=== PATIENT | male | born 1965 | race African-American/Black ===

== ENCOUNTER 2020-04-17 10:54 | Observation (INO) | payer BC ==
[~2020-04-17] VITALS: Ht 172.7 cm; Wt 65.8 kg
--- NOTE | 2020-04-17 11:08 | PHYS DOC ---
General Adult EDM: Chief Complaint: NEURO SYMPTOMS/DEFICITS HPI: HPI: The history was obtained from the patient and sister. Patient is a 54-year-old male with PMH hypertension, hyperlipidemia, chronic right lower extremity weakness who presents with a chief complaint of slurred speech. Per patient he had acute onset slurred speech and confusion 1 hour prior to arrival. He states that he had difficulty walking due to bilateral lower extremity weakness. Patient denies any falls or head trauma. He states he has never had a stroke before. He states that he does drink alcohol daily. He states he drinks 1 beer, 2 shots in the evenings. States he last drank yesterday evening. Denies any drug abuse outside of marijuana. He denies any chest pain or shortness of breath. Denies any fevers or cough. Denies any syncope. States he has never had symptoms like this in the past. Sister states that patient has chronic right lower extremity weakness and walks with a limp. They think he may have had a stroke years ago but never was evaluated for this. She did state that the patient told her that he did take a Percocet at home for leg pain. She is unsure whether the Percocet is prescrib ed. She denies any concern for excessive alcohol use or drug abuse. No other complaints. Review of Systems: Review of Systems: Constitutional: Denies fever or chills Eyes: Denies change in visual acuity HENT: Denies nasal congestion or sore throat Respiratory: Denies cough or shortness of breath Cardiovascular: Denies chest pain or edema GI: Denies abdominal pain, nausea, vomiting, bloody stools or diarrhea : Denies dysuria Musculoskeletal: Denies back pain or joint pain Integument: Denies rash Neurologic: Positive for slurred speech and generalized weakness Endocrine: Denies polyuria or polydipsia Lymphatic: Denies swollen glands Psychiatric: Denies depression or anxiety Heart Score: Risk Factors: Risk Factors: DM, Current or recent (<one month) smoker, HTN, HLP, family history of CAD, obesity. Risk Scores: Score 0 - 3: 2.5% MACE over next 6 weeks - Discharge Home Score 4 - 6: 20.3% MACE over next 6 weeks - Admit for Clinical Observation Score 7 - 10: 72.7% MACE over next 6 weeks - Early Invasive Strategies Physical Exam: PE: Constitutional: Well developed, well nourished, no acute distress, non-toxic appearance. [] HENT: Normocephalic, atraumatic, bilateral external ears normal, oropharynx moist, no oral exudates, nose normal. [] Eyes: PERRLA, EOMI, conjunctiva normal, no discharge. [] Neck: Normal range of motion, no tenderness, supple, no stridor. [] Cardiovascular:Heart rate regular rhythm, no murmur [] Lungs & Thorax: Bilateral breath sounds clear to auscultation [] Abdomen: Bowel sounds normal, soft, no tenderness, no masses, no pulsatile masses. [] Skin: Warm, dry, no erythema, no rash. [] Back: No tenderness, no CVA tenderness. [] Extremities: No tenderness, no cyanosis, no clubbing, ROM intact, no edema. [] Neurologic: Alert and oriented X 3, normal motor function, normal sensory function, no focal deficits noted. [] Psychologic: Affect normal, judgement normal, mood normal. [] Current Patient Data: Labs: Laboratory Tests Test 04/17/20 10:54 04/17/20 11:21 04/17/20 11:53 Glucose (Fingerstick) 144 mg/dL White Blood Count 7.2 x10^3/uL Red Blood Count 4.06 x10^6/uL Hemoglobin 13.8 g/dL Hematocrit 40.3 % Mean Corpuscular Volume 99 fL Mean Corpuscular Hemoglobin 34 pg Mean Corpuscular Hemoglobin Concent 34 g/dL Red Cell Distribution Width 12.5 % Platelet Count 224 x10^3/uL Neutrophils (%) (Auto) 66 % Lymphocytes (%) (Auto) 23 % Monocytes (%) (Auto) 9 % Eosinophils (%) (Auto) 2 % Basophils (%) (Auto) 0 % Neutrophils # (Auto) 4.7 x10^3uL Lymphocytes # (Auto) 1.7 x10^3/uL Monocytes # (Auto) 0.7 x10^3/uL Eosinophils # (Auto) 0.1 x10^3/uL Basophils # (Auto) 0.0 x10^3/uL Sodium Level 143 mmol/L Potassium Level 3.5 mmol/L Chloride Level 107 mmol/L Carbon Dioxide Level 31 mmol/L Anion Gap 5 Blood Urea Nitrogen 16 mg/dL Creatinine 0.9 mg/dL Estimated GFR (Cockcroft-Gault) 87.6 BUN/Creatinine Ratio 18 Glucose Level 106 mg/dL Calcium Level 8.9 mg/dL Total Bilirubin 0.3 mg/dL Aspartate Amino Transf (AST/SGOT) 11 U/L Alanine Aminotransferase (ALT/SGPT) 22 U/L Alkaline Phosphatase 35 U/L Troponin I Quantitative < 0.017 ng/mL Total Protein 6.7 g/dL Albumin 3.5 g/dL Albumin/Globulin Ratio 1.1 Ethyl Alcohol Level < 10 mg/dL Urine Collection Type Unknown Urine Color Yellow Urine Clarity Clear Urine pH 5.5 Urine Specific [place] 1.020 Urine Protein Neg Urine Glucose (UA) Neg mg/dL Urine Ketones (Stick) Neg mg/dL Urine Blood Small Urine Nitrite Neg Urine Bilirubin Neg Urine Urobilinogen Dipstick 0.2 mg/dL Urine Leukocyte Esterase Neg Urine RBC 3-5 /HPF Urine WBC Occ /HPF Urine Squamous Epithelial Cells Occ /LPF Urine Bacteria 0 /HPF Urine Mucus Slight /LPF Urine Opiates Screen Neg Urine Methadone Screen Neg Urine Barbiturates Neg Urine Phencyclidine Screen Neg Urine Amphetamine/Methamphetamine Neg Urine Benzodiazepines Screen Neg Urine Cocaine Screen Neg Urine Cannabinoids Screen Neg Urine Ethyl Alcohol Neg Current Medications Medications (Trade) Dose Ordered Sig/Oli Route PRN Reason Start Time Stop Time Status Last Admin Dose Admin Iohexol (Omnipaque 350 Mg/ml) 100 ml 1X ONCE IV 04/17/20 13:15 04/17/20 13:16 DC 04/17/20 13:34 Info (Do NOT chart on this entry -- for MONITORING) 1 each PRN DAILY PRN MC SEE COMMENTS 04/17/20 13:15 04/19/20 13:14 Nicotine (Nicoderm Cq 21mg Patch) 1 patch 1X ONCE TD 04/17/20 13:15 04/17/20 13:16 DC 04/17/20 13:34 Haloperidol Lactate (Haldol) 5 mg STK-MED ONCE .ROUTE 04/17/20 13:29 04/17/20 13:30 DC Vital Signs: Vital Signs Date Time Temp Pulse Resp B/P (MAP) Pulse Ox O2 Delivery O2 Flow Rate FiO2 04/17/20 10:57 97.8 70 16 155/88 (110) 99 Room Air EKG: EKG: EKG consistent with normal sinus rhythm. Ventricular to 68 bpm. Left axis n oted. Flipped T waves noted in the inferior leads. No acute ST segment elevation appreciated. [] Radiology/Procedures: Radiology/Procedures: [address] [address] IMAGING REPORT Signed PATIENT: BUD MCCORD ACCOUNT: [id number] : 1965 LOCATION: ER AGE: 54 SEX: M EXAM STATUS: REG ER ORD. PHYSICIAN: RIVERA KEITA DO REASON: ataxia PROCEDURE: CT ANGIOGRAPHY HEAD AND NECK EXAM: CT Angiogram of the Head and Neck INDICATION: Reason: ataxia / Spl. Instructions: / History: TECHNIQUE: CT images were obtained through the head per standard CTA protocol. Multiplanar and 3D reformatted images were generated from the CT dataset on an independent workstation. All CT scans performed at this facility utilize dose optimization techniques as appropriate to the exam, including the following: Automated exposure control and adjustment of the mA and/or KV according to patient size (this includes techniques or standardized protocols for targeted exams where dose is indication/reason for exam). IV CONTRAST: Administered COMPARISON: Same day noncontrast head CT FINDINGS: CTA HEAD: No high-grade large vessel stenosis, proximal or branch vessel occlusion, aneurysm, or vascular malformation. ANTERIOR CIRCULATION: Anterior and middle cerebral arteries are widely patent. ANTERIOR COMMUNICATING ARTERY: Diminutive but likely present.. POSTERIOR COMMUNICATING ARTERIES: Present bilaterally and patent. POSTERIOR CIRCULATION: Vertebral and basilar arteries are widely patent. Bilateral posterior inferior cerebellar arteries (PICAs), anterior inferior cerebellar arteries (AICAs), and superior cerebellar arteries (SCAs) are visualized and patent. OTHER: No abnormal brain parenchymal enhancement. The paranasal sinuses, mastoid air cells, and tympanic cavities are clear. NECK CTA: AORTA: 3 vessel configuration of arch. No dissection or acute aortic injury. No hemodynamically significant great vessel origin stenosis. RIGHT CAROTID: Common and internal carotid arteries are widely patent, without evidence of flow limiting stenosis or dissection. LEFT CAROTID: Common and internal carotid arteries are widely patent, without evidence of flow limiting stenosis or dissection. VERTEBRAL ARTERIES: Codominant. No evidence of dissection or flow limiting stenosis. SUBCLAVIAN ARTERIES:Subclavian arteries are patent without stenosis. SOFT TISSUES: Soft tissues show minimal prominence of the upper cervical lymph nodes, no bulky adenopathy. Lung apices are clear. Incidental ACDF surgical changes in the mid cervical spine spanning C3-C5 with interbody grafts at C3-C4 and C4-C5. Where applicable, evaluation of ICA stenosis was performed using NASCET criteria, where the site of greatest stenosis is compared to the diameter of the ICA distal to the carotid bulb. IMPRESSION: Normal CTA of the head and neck. FOR INTERNAL CODING PURPOSES Critical result: Findings discussed with RIVERA KEITA at 04/17/2020 2:13 PM. RESULT CODE: (C) Electronically signed by: Kristen Ragsdale MD (04/17/2020 2:14 PM) [id number] DICTATED AND SIGNED BY: KRISTEN RAGSDALE MD DATE: 04/17/20 1414 CC: PCP,NO; RIVERA KEITA DO ~ [address] [address] IMAGING REPORT Signed PATIENT: BUD MCCORD ACCOUNT: [id number] : 1965 LOCATION: ER AGE: 54 SEX: M EXAM STATUS: PRE ER ORD. PHYSICIAN: RIVERA KEITA DO REASON: dysarthria and aphasia PROCEDURE: CT CODE STROKE HEAD WO STUDY: CT head without contrast INDICATION: Dysarthria and aphasia. COMPARISON: None. TECHNIQUE: Axial CT imaging through the head without the use of intravenous contrast. Sagittal and coronal reformats were obtained. One or more of the following individualized dose reduction techniques were utilized for this examination: 1. Automated exposure control 2. Adjustment of the mA and/or kV according to patient size 3. Use of iterative reconstruction technique. FINDINGS: Hernandez-white matter differentiation is maintained. No acute intracranial hemorrhage. No mass effect, midline shift or hydrocephalus. Unremarkable scalp and partially imaged orbits. Intact calvarium. Normally aerated mastoid air cells, middle ears and sphenoid sinus frontal sinus. Mild scattered ethmoidal air cell mucosal thickening. Bilateral external auditory canals cerumen. IMPRESSION: No CT evidence for an acute cortical infarction. No acute intracranial hemorrhage. Electronically signed by: MONA AGUDELO MD (04/17/2020 11:34 AM) [id number] DICTATED AND SIGNED BY: MONA AGUDELO MD DATE: 04/17/20 1134 CC: BRIAN KEITAORY Meme DO ~ [] Course & Med Decision Making: Course & Med Decision Making Pertinent Labs and Imaging studies reviewed. (See chart for details) [] Patient is a 54-year-old male who presents with dysarthria, generalized weakness, confusion. Patient works across the street and was found to have the symptoms just prior to arrival. Patient tells me however that the symptoms may have began almost 4 hours prior to arrival. Initial NIH score of 1, for dysarthria. Stroke protocol was initiated. Indgf-ch-ksuc glucose normal. Head CT noncontrast study negative. EKG unremarkable. Basic labs were obtained and were grossly unremarkable. Alcohol level negative. UDS negative. Sister did arrive at bedside shortly after CT imaging. She states that his speech is baseline for him. She states that he typically does ambulate with slight bal ance issues due to right lower extremity weakness secondary to back pain. However she states that his balance seems to be slightly worse than normal. Given my concern for some posterior involvement CTA head and neck was obtained that was unremarkable. Based on the unclear last known well and unclear acute versus chronic neurologic symptoms I do not feel he is a TPA candidate. I did discuss case with neurologist Dr. Churchill who felt the patient was appropriate for hospitalization at our facility and further evaluation. Patient was given full dose aspirin. Prior to hospitalization patient did become somewhat agitated and verbally combative. I do have concerns for his capacity at this time given he has displayed intermittent confusion and is not oriented to time. He was given 5 mg of Haldol IV to facilitate anxiolysis. He is appropriate for hospitalization at this time. Dragon Disclaimer: Dragon Disclaimer: This electronic medical record was generated, in whole or in part, using a voice recognition dictation system. Departure Departure: Impression: Primary Impression: Confused Additional Impressions: Dysarthria Ataxia Disposition: ADMITTED INPATIENT Condition: STABLE Scripts Aspirin (ASPIRIN) 81 Mg Tab.chew 81 MG PO DAILY for cad for 30 Days, #30 TAB Prov: MARLENE STEIN MD 04/18/20 Amlodipine Besylate (AMLODIPINE BESYLATE) 10 Mg Tablet 1 TAB PO DAILY for htn for 30 Days, #30 TAB 5 Refills Prov: MARLENE STEIN MD 04/18/20 Justification of Admission: Justification of Admission: Justification of Admission Dx: Yes Comments: confusion, dysarthria, ataxia NIHSS - ED NIH Stroke Scale: NIH Stroke Scale Response (Comments) Value Level of Consciousness: 0 Alert/Responsive 0 LOC Questions: 0 Answers both correctly 0 LOC Commands: 0 Performs both tasks 0 Best Gaze: 0 Normal 0 Visual: 0 No visual loss 0 Facial Palsy: 0 Normal, symmetrical 0 Motor - Left Arm 0 No drift 0 Motor - Right Arm 0 No drift 0 Motor - Left Leg 0 No drift 0 Motor: Right Leg 0 No drift 0 Limb Ataxia: 0 Absent 0 Sensory: 0 No loss 0 Best Language: 0 Normal 0 Dysathria: 1 Mild to moderate 1 Extinction and Inattention: 0 Normal 0 Total 1 RIVERA KEITA DO Apr 17, 2020 11:08
--- NOTE | 2020-04-17 11:33 | EKG ---
[address] [address] Test Date: 2020-04-17 Test Time: 11:11:11 Pat Name: BUD WALLACE Department: Room: Gender: M [employer]: : 1965 Requested By: RIVERA KEITA Order Number: [id number] Reading MD: Measurements Intervals [place] Rate: 68 P: 31 DE: 148 QRS: -6 QRSD: 96 T: -49 QT: 396 QTc: 426 Interpretive Statements SINUS RHYTHM LEFTWARD AXIS AMPLITUDE CRITERIA FOR LVH ST & T ABNORMALITY, CONSIDER INFERIOR ISCHEMIA OR LEFT VENTRICULAR STRAIN ABNORMAL ECG RI6.02 No previous ECG available for comparison
--- NOTE | 2020-04-17 11:36 | RAD ---
AP chest. HISTORY: Confusion AP view was taken of the chest. Patient's taken a poor inspiration. There are no acute infiltrates. There is no pleural effusion. Heart is normal in size. IMPRESSION: 1. No acute chest disease. Electronically signed by: Mitesh Villalobos MD (04/17/2020 11:33 AM) [id number]
--- NOTE | 2020-04-17 11:37 | RAD ---
STUDY: CT head without contrast INDICATION: Dysarthria and aphasia. COMPARISON: None. TECHNIQUE: Axial CT imaging through the head without the use of intravenous contrast. Sagittal and coronal reformats were obtained. One or more of the following individualized dose reduction techniques were utilized for this examination: 1. Automated exposure control 2. Adjustment of the mA and/or kV according to patient size 3. Use of iterative reconstruction technique. FINDINGS: Hernandez-white matter differentiation is maintained. No acute intracranial hemorrhage. No mass effect, midline shift or hydrocephalus. Unremarkable scalp and partially imaged orbits. Intact calvarium. Normally aerated mastoid air cells, middle ears and sphenoid sinus frontal sinus. Mild scattered ethmoidal air cell mucosal thickening. Bilateral external auditory canals cerumen. IMPRESSION: No CT evidence for an acute cortical infarction. No acute intracranial hemorrhage. Electronically signed by: MONA AGUDELO MD (04/17/2020 11:34 AM) [id number]
[2020-04-17 11:38] LABS: BASO % 0 % (0-3); EOS # 0.1 x10^3/uL (0.0-0.7); EOS % 2 % (0-3); HEMATOCRIT 40.3 % (39.0-53.0); HEMOGLOBIN 13.8 g/dL (13.0-17.5); LYMPH # 1.7 x10^3/uL (1.0-4.8); LYMPH % 23 % (24-48); MEAN CORPUSCULAR HEMOGLOBIN 34 pg (25-35); MEAN CORPUSCULAR HGB CONC 34 g/dL (31-37); MEAN CORPUSCULAR VOLUME 99 fL (79-100); MONO # 0.7 x10^3/uL (0.0-1.1); MONO % 9 % (0-9); NEUT # 4.7 x10^3uL (1.8-7.7); NEUT % 66 % (31-73); PLATELET COUNT 224 x10^3/uL (140-400); RED BLOOD COUNT 4.06 x10^6/uL (4.30-5.70); RED CELL DISTRIBUTION WIDTH 12.5 % (11.5-14.5); WHITE BLOOD COUNT 7.2 x10^3/uL (4.0-11.0)
[2020-04-17 11:45] LABS: CALCIUM 8.9 mg/dL (8.5-10.1); CREATININE 0.9 mg/dL (0.7-1.3); GFR 87.6; POTASSIUM 3.5 mmol/L (3.5-5.1)
[2020-04-17 11:51] LABS: ALBUMIN 3.5 g/dL (3.4-5.0); ALBUMIN/GLOBULIN RATIO 1.1 (1.0-1.7); TOTAL BILIRUBIN 0.3 mg/dL (0.2-1.0); TOTAL PROTEIN 6.7 g/dL (6.4-8.2)
[2020-04-17 12:18] LABS: BARBITURATES NEG (NEG); BENZODIAZEPINES NEG (NEG); CANNABINOIDS NEG (NEG); COCAINE NEG (NEG); METHADONE NEG (NEG); OPIATES NEG (NEG); PHENCYCLIDINE NEG (NEG)
[2020-04-17 12:19] LABS: AMPHETAMINE/METHAMPHETAMINE NEG (NEG)
[2020-04-17 13:02] LABS: BACTERIA,URINE 0 /HPF (0-FEW); BILIRUBIN,URINE NEG (NEG); CLARITY,URINE CLEAR; COLOR,URINE YELLOW; GLUCOSE,URINE NEG (NEG); NITRITE,URINE NEG (NEG); SQUAMOUS EPITHELIAL CELL,UR OCC /LPF; UROBILINOGEN,URINE 0.2 mg/dL (0.2 mg/dL); WBC,URINE OCC /HPF (0-4)
[2020-04-17] MEDS ORDERED: CONTRAST GIVEN. MC PRN (13:15)
[2020-04-17] MEDS ORDERED: IOHEXOL 350 MG/ML 100 ML VIAL. IV ONE (13:15)
[2020-04-17] MEDS ORDERED: NICOTINE 21MG PATCH. TD ONE (13:15)
[2020-04-17] MEDS ORDERED: HALOPERIDOL LACT 5 MG/ML VIAL. ONE (13:29)
[2020-04-17] MEDS ORDERED: HALOPERIDOL LACT 5 MG/ML VIAL. IVP ONE (13:45)
--- NOTE | 2020-04-17 14:17 | RAD ---
EXAM: CT Angiogram of the Head and Neck INDICATION: Reason: ataxia / Spl. Instructions: / History: TECHNIQUE: CT images were obtained through the head per standard CTA protocol. Multiplanar and 3D reformatted images were generated from the CT dataset on an independent workstation. All CT scans performed at this facility utilize dose optimization techniques as appropriate to the exam, including the following: Automated exposure control and adjustment of the mA and/or KV according to patient size (this includes techniques or standardized protocols for targeted exams where dose is indication/reason for exam). IV CONTRAST: Administered COMPARISON: Same day noncontrast head CT FINDINGS: CTA HEAD: No high-grade large vessel stenosis, proximal or branch vessel occlusion, aneurysm, or vascular malformation. ANTERIOR CIRCULATION: Anterior and middle cerebral arteries are widely patent. ANTERIOR COMMUNICATING ARTERY: Diminutive but likely present.. POSTERIOR COMMUNICATING ARTERIES: Present bilaterally and patent. POSTERIOR CIRCULATION: Vertebral and basilar arteries are widely patent. Bilateral posterior inferior cerebellar arteries (PICAs), anterior inferior cerebellar arteries (AICAs), and superior cerebellar arteries (SCAs) are visualized and patent. OTHER: No abnormal brain parenchymal enhancement. The paranasal sinuses, mastoid air cells, and tympanic cavities are clear. NECK CTA: AORTA: 3 vessel configuration of arch. No dissection or acute aortic injury. No hemodynamically significant great vessel origin stenosis. RIGHT CAROTID: Common and internal carotid arteries are widely patent, without evidence of flow limiting stenosis or dissection. LEFT CAROTID: Common and internal carotid arteries are widely patent, without evidence of flow limiting stenosis or dissection. VERTEBRAL ARTERIES: Codominant. No evidence of dissection or flow limiting stenosis. SUBCLAVIAN ARTERIES:Subclavian arteries are patent without stenosis. SOFT TISSUES: Soft tissues show minimal prominence of the upper cervical lymph nodes, no bulky adenopathy. Lung apices are clear. Incidental ACDF surgical changes in the mid cervical spine spanning C3-C5 with interbody grafts at C3-C4 and C4-C5. Where applicable, evaluation of ICA stenosis was performed using NASCET criteria, where the site of greatest stenosis is compared to the diameter of the ICA distal to the carotid bulb. IMPRESSION: Normal CTA of the head and neck. FOR INTERNAL CODING PURPOSES Critical result: Findings discussed with RIVERA KEITA at 04/17/2020 2:13 PM. RESULT CODE: (C) Electronically signed by: Ethan Ragsdale MD (04/17/2020 2:14 PM) [id number]
[2020-04-17] MEDS ORDERED: ASPIRIN 325 MG TABLET PO ONE (14:45)
[2020-04-17 15:50] VITALS: BP 189/94
[2020-04-17] MEDS ORDERED: amLODIPine BESYLATE 5 MG TABLET PO ONE (16:45)
[2020-04-17] MEDS: POTASSIUM CL 40MEQ D5-0.45NACL 1,000 ML IV SCH (17:31)
--- NOTE | 2020-04-17 17:43 | HP ---
ADMIT DATE: 04/17/2020 HISTORY OF PRESENT ILLNESS: The patient is a 54-year-old -[place] male patient who was brought to the Emergency Room with chief complaint of slurred speech. Per patient he had acute onset of slurred speech and confusion 1 hour prior to arrival. He stated he had had difficulty walking due to bilateral lower extremity weakness. He denied any fall or head trauma. He stated he has never had any strokes before. He stated that he does drink alcohol daily. He states he drank 1 beer and 2 shots in the evening. He last drank yesterday evening. Denied any drug abuse outside of marijuana. He denied any chest pain or shortness of breath. Denied any fever or cough. Denied any syncope. He has never had symptoms like this before. His sister stated that the patient has chronic right lower extremity weakness and walks with a limp. They think he may have had a stroke years ago, but never was evaluated for this. She did state that the patient told her that he did take a Percocet at home for leg pain. She is unsure whether that Percocet is prescribed. She denies any concern for excessive alcohol or drug abuse. He apparently works at the [employer] in the [employer] department and to me he denied taking any medication today, although admits that he drinks alcohol. PAST MEDICAL HISTORY: Significant for hypertension, hyperlipidemia, chronic right lower extremity weakness. PAST SURGICAL HISTORY: Significant for cervical spine fusion. ALLERGIES: He denies any drug allergies. It transpired that he is not on any medication now. He said he used to be on antihypertensive medication long time ago. FAMILY HISTORY: Apparently unremarkable. SOCIAL HISTORY: He lives alone. He does smoke and drink alcohol and uses marijuana. REVIEW OF SYSTEMS: As per history of present illness. PHYSICAL EXAMINATION: GENERAL: When I examined him, he apparently was well-developed, well-nourished, in no acute distress. VITAL SIGNS: His heart rate was 65, blood pressure was 162/91, his temperature was 97.8, respiratory rate was 16, and oxygen saturation was 99%. HEAD, EYES, EARS, NOSE AND THROAT: Showed normocephalic, atraumatic. NECK: Supple. There is definitely no neck rigidity and Kernig's sign was negative. HEART: Showed normal first and second heart sounds. No gallop, rub or murmur. CHEST: Clear to auscultation. No crepitation or rhonchi. ABDOMEN: Distended, soft, nontender. No guarding or rigidity. No organomegaly. All hernial orifice intact. Bowel sounds normal. NEUROLOGIC: He was very sleepy, but arousable. He opens eyes and drifts back to sleep. All his cranial nerves are intact. EXTREMITIES: He moves all extremities without difficulty. LABORATORY DATA: His lab work on arrival showed a white cell count 7200, hemoglobin 14, hematocrit 40, MCV 99 and platelet count 224,000 with normal manual differential. His serum sodium was 143, potassium 3.5, chloride 107, bicarbonate 31, anion gap of 5, BUN 16, creatinine 0.9, estimated GFR was 88 mL per minute, his glucose was 106, calcium was 8.9. His total bilirubin 0.3. AST, ALT, alkaline phosphatase were normal. His total protein was 6.7, albumin was 3.5. His urinalysis was essentially unremarkable and his toxic screen was negative for opiates, methadone, barbiturates, phencyclidine, amphetamine, methamphetamine, cocaine, cannabinoids, and ethyl alcohol. The CT scan of the head showed the alvares-white matter differentiation is maintained, no acute intracranial hemorrhage, no mass effect or midline shift or hydrocephalus, unremarkable. Scalp and partially imaged orbits, intact calvarium, normally aerated mastoid air cells, middle ears and sphenoid sinus and frontal sinuses. Mild scattered ethmoid air cell mucosal thickening, bilateral external auditory canal cerumen and the impression is that the patient has no evidence of an acute cortical infarction, no acute intracranial hemorrhage. His chest x-ray was unremarkable and he had had a CT angio of the head and neck, which showed basically no high-grade large vessel stenosis, proximal or branch vessel occlusion, aneurysm or vascular malformation. The anterior circulation, the anterior and middle cerebral arteries are widely patent, anterior communicating artery diminutive, but likely present. Posterior communicating artery is present bilaterally and patent Posterior circulation showed vertebral and basilar arteries are widely patent, has bilateral posterior inferior cerebellar arteries, anterior inferior cerebellar arteries and superior cerebellar arteries visualized and patent. No abnormal brain parenchymal enhancement. The paranasal sinuses, mastoid air cells and tympanic cavities are clear. The neck CTA showed the aorta has 3-vessel configuration of arch. No dissection or acute aortic injury, no hemodynamically significant great vessel origin stenosis. Right carotid, common and internal carotid arteries are widely patent without evidence of flow limiting stenosis or dissection. The left carotid, common and internal carotid arteries are widely patent without evidence of flow limiting stenosis or dissection. Vertebral arteries codominant, no evidence of dissection or flow-limiting stenosis. Subclavian arteries are patent without stenosis. Soft tissue show minimal prominence of the upper cervical lymph nodes. No bulky adenopathy. Lung apices are clear. Incidental ACDF surgical changes in the mid cervical spine spanning C3-C5 with interbody graft at C3-C4 and C4-C5 where applicable evaluation of internal carotid artery stenosis is performed using NASCET criteria with the site of greater stenosis compared to the ____ diameter of the carotid bulb and the impression, the patient has normal CT angio of the head and neck. In summary, this is a 54-year-old -[place] male patient who was admitted with what seemed to be slurring of speech. However, the patient seems to be very lethargic. His sister said he might have taken Percocet. Unfortunately, he was given Haldol at the Emergency Room and patient is extremely lethargic, but without any obvious lateralizing sign. His neck was supple and definitely has no neck rigidity and Kernig's sign was negative His pupils are small and reactive. My plan is to start him on IV fluid and also antihypertensive medication, perhaps amlodipine 5 mg once and repeat all his labs tomorrow. I have consulted the neurologist to assist with his management and obviously observe him overnight. MARLENE STEIN MD DR: JANIS/gary JOB#: [id number] / [id number]
--- NOTE | 2020-04-17 18:32 | NUR ---
PATIENT IS A 54 Y O MALE ADMITTED TO ROOM 113 FROM ED WITH BILATERAL LOWER LEG WEAKNESS AND CONFUSION. PATIENT TRANSFERRED WITH ASSIST X2. A/O X4, PATIENT WAS SEDATED AT ED, ED STAFF REPORTED PATIENT BECAME COMBATIVE AT ED. PATIENT WAS ORIENTED TO THE ROOM, HOSPITAL POLICIES, BELONGINGS OBTAINED. PATIENT IS CALM AND COOPERATIVE, LETHARGIC AND KEEP FALLING ASLEEP DURING ASSESSMENT. ORDERS FROM DR. STEIN OBTAINED CONSULT FOR DR. MONIQUE CORRIGAN. PATIENT IS RESTING COMFORTABLY AT THIS MOMENT, WILL CTM.
[2020-04-17 19:30] VITALS: BP 150/98
--- NOTE | 2020-04-17 20:06 | RAD ---
Exam: CT lumbar spine without contrast INDICATION: Bilateral lower extremity weakness TECHNIQUE: Sequential axial images through the lumbar spine obtained without IV contrast. Sagittal and coronal reformatted images were reconstructed from the axial data and reviewed. Comparisons: None FINDINGS: Vertebral body heights and alignment are well-maintained. Fracture through the lumbar spine is not identified. No significant spondylotic change in the lumbar spine. Visualized soft tissues are unremarkable. IMPRESSION: Unremarkable CT lumbar spine. Exposure: One or more of the following in the visualized dose reduction techniques were utilized for this examination: 1. Automated exposure control 2. Adjustment of the MA and/or KV according to patient size 3. Use of iterative of reconstructive technique Electronically signed by: Tressa Rausch MD (04/17/2020 8:04 PM) [id number]
[2020-04-17 23:10] VITALS: BP 152/84
--- NOTE | 2020-04-18 01:06 | CONS ---
DATE OF CONSULTATION: 04/17/2020 REFERRING PHYSICIAN: Dr. Mao. REASON FOR CONSULTATION: Weakness of the lower extremity and slurred speech, rule out stroke versus TIA. HISTORY OF PRESENT ILLNESS: This is a 54-year-old right-handed male who was admitted to Emergency Room after he complained of sudden onset of slurred speech and intermittent confusion with marked weakness of the lower extremities and tendency to fall. These symptoms began approximately 3-4 hours prior to this admission. He denies any recent head injuries or fall. He denies chest pain, shortness of breath, palpitation, dysphagia or vertigo. He denies any recent head injuries or fall. The patient complains of chronic lower back pain and he related that to degenerative disk disease of the lumbar spine for which he takes Percocet, which is not prescribed by the physician. He denies bowel or bladder dysfunction. Initial nonenhanced head CT scan revealed no acute intracranial process. CT angio of the head and neck revealed no acute abnormalities except for surgical changes in between C3-C5 due to fusion. PAST MEDICAL HISTORY: Significant for hypertension, hyperlipidemia and slowly progressive weakness of the lower extremities. PAST SURGICAL HISTORY: Positive for cervical spine fusion between C3-C5. ALLERGIES: No known drug allergies. FAMILY HISTORY: Noncontributory. SOCIAL HISTORY: The patient is single. 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 He drinks alcohol and smokes marijuana. REVIEW OF SYSTEMS: A 10-point review of system was performed as mentioned above in the history of present illness. His main complaint is including low back pain and weakness of the lower extremities. CURRENT HOME MEDICATIONS: None, however, the patient in the Emergency Room was given Haldol IV. PHYSICAL EXAMINATION: GENERAL: Well-developed, well-nourished male, not in acute distress. He weighs 67 kilos. VITAL SIGNS: Blood pressure 150/98, respiratory rate 20, pulse is 73 and regular, temperature 97.7, oxygen saturation is 95% on room air. HEENT: Normocephalic, atraumatic, otherwise unremarkable. NECK: Supple. Negative for carotid bruit, lymphadenopathy or thyromegaly. LUNGS: Clear to A and P. CARDIOVASCULAR: Regular rate and rhythm, normal S1, S2. There is no S3, S4 or murmur. ABDOMEN: Soft. Bowel sounds positive. EXTREMITIES: Negative for cyanosis, clubbing or edema. NEUROLOGICAL: MENTAL STATUS: The patient is alert and oriented x 3. Speech is fluent. There is no language dysfunction. Memory, judgment, and abstract thinking are fair. The patient denies hallucination or delusion. CRANIAL NERVES: Visual vanegas are full. The pupils are reactive to light and accommodation. The extraocular movements are intact. There is no nystagmus. There is no facial motor or sensory deficit. Hearing is intact bilaterally. The palate is elevated symmetrically. Sternocleidomastoid muscles are powerful bilaterally. The patient shrugs his shoulders symmetrically, protrudes his tongue in the midline without fasciculation or atrophy. MOTOR EXAMINATION: No focal muscle bulk was seen. The tone is normal. The strength is 4/5 in the proximal lower extremities. SENSORY EXAMINATION: Revealed normal pinprick, light touch, vibratory and position senses. Deep tendon reflexes were symmetric and active without pathology responses. Gait: The patient has abnormal tandem gait and he has tendency to fall when he turns. LABORATORY DATA: CBC revealed white cells of 7.2 thousand, hemoglobin 13.8, hematocrit 40.3 and platelet count 224,000. Chemistry revealed sodium of 143, potassium 3.5, chloride 107, CO2 of 31, BUN 16, creatinine 0.9, glucose 106, calcium 8.9. Troponin is normal. Urinalysis negative for urinary tract infection. Urine drug screen was negative. IMPRESSION: 1. Acute onset of slurred speech, confusion and weakness of the lower extremities, etiology uncertain as the patient has had weakness of the lower extremity and limping on the right side, probably due to previous cervical fusion between C3-C5. 2. Multiple medical problems include hypertension, hyperlipidemia and chronic low back pain. RECOMMENDATIONS: 1. We will obtain a lumbar spine CT scan as the patient stated he has had history of bulging disk of the lumbar spine. 2. Continue with current management initiated by Dr. Mao. 3. Physical therapy evaluation. M Aman AMAYA MD DR: KONRAD/gary JOB#: [id number] / [id number]
[2020-04-18] MEDS: POTASSIUM CL 40MEQ D5-0.45NACL 1,000 ML IV SCH (01:39)
[2020-04-18 05:53] VITALS: BP 146/96
[2020-04-18] MEDS ORDERED: amLODIPine BESYLATE 5 MG TABLET PO SCH (09:00)
[2020-04-18 09:06] LABS: CALCIUM 9.1 mg/dL (8.5-10.1); CREATININE 0.8 mg/dL (0.7-1.3); GFR 121.4
[2020-04-18 09:18] LABS: POTASSIUM 4.1 mmol/L (3.5-5.1)
[2020-04-18 10:16] LABS: BASO % 0 % (0-3); EOS # 0.2 x10^3/uL (0.0-0.7); EOS % 2 % (0-3); HEMATOCRIT 42.3 % (39.0-53.0); HEMOGLOBIN 14.6 g/dL (13.0-17.5); LYMPH # 1.6 x10^3/uL (1.0-4.8); LYMPH % 21 % (24-48); MEAN CORPUSCULAR HEMOGLOBIN 34 pg (25-35); MEAN CORPUSCULAR HGB CONC 35 g/dL (31-37); MEAN CORPUSCULAR VOLUME 100 fL (79-100); MONO # 0.6 x10^3/uL (0.0-1.1); MONO % 8 % (0-9); NEUT # 5.1 x10^3uL (1.8-7.7); NEUT % 68 % (31-73); PLATELET COUNT 207 x10^3/uL (140-400); RED BLOOD COUNT 4.25 x10^6/uL (4.30-5.70); RED CELL DISTRIBUTION WIDTH 12.6 % (11.5-14.5); WHITE BLOOD COUNT 7.5 x10^3/uL (4.0-11.0)
[2020-04-18 11:26] VITALS: BP 156/92
--- NOTE | 2020-04-18 11:51 | NUR ---
NSG NOTE; STATUS WNL PT HAD BEDSIDE SCREEN THIS AM WHICH WAS NEGATIVE FOR SWALLOWING PROBLEMS. HE ATE A LATE BREAKFAST WITH NO ISSUES. A&O X4. THINKING AND SPEAKING CLEARLY PT AMB TO BR WITH STANDBY WITHOUT DIZZINESS OR UNSTEADINESS. DR AMAYA CLEARED PT FOR DISCHARGE TODAY AND TO FOLLOW UP IN OFFICE IN TWO WEEKS
[2020-04-18 12:00] VITALS: BP 156/92
--- NOTE | 2020-04-18 12:12 | PN ---
DATE: SUBJECTIVE: The patient denies any new medical or neurological complaints. He stated he was not doing well at the day of admission because of severe low back pain radiating into the right lower extremity; however, he stated his pain mainly now in the right hip and the knees. Therefore, he took oxycodone and a friend gave him two pills, he thought it was like Adderall because he wants to do 2 jobs a day. The patient knows he was somewhat agitated on the day of admission and he was given Haldol in the Emergency Room. The patient told me yesterday he had severe radicular lower back pain and he related that to two bulging disks of the lumbar spine. Therefore, CT scan of the lumbar spine was performed, which revealed no abnormalities. It is very important to mention that the patient has had this weakness of the right lower extremity prior and after cervical spine fusion between C3 and C5. He was told by his neurosurgeon, Dr. Shay that weakness will improve over time. The patient stated he has had some improvement, but he continues to have some weakness of the right lower extremity. OBJECTIVE: GENERAL: Well-developed, well-nourished male in no acute distress. VITAL SIGNS: Blood pressure 146/96, respiratory rate 20, pulse 66, temperature 98.1, oxygen saturation 98% on room air. HEENT: Normocephalic, atraumatic, otherwise unremarkable. NECK: Supple. Negative for carotid bruit, lymphadenopathy or thyromegaly. LUNGS: Clear to A and P. CARDIOVASCULAR: Regular rate and rhythm, normal S1, S2. There is no S3, S4, or murmur. ABDOMEN: Soft. Bowel sounds positive. EXTREMITIES: Negative for cyanosis, clubbing or edema. NEUROLOGICAL EXAM: Mental Status: The patient is alert and oriented x 3. The speech is fluent. There is no language dysfunction, otherwise unremarkable. Cranial nerves are intact. No focal motor or sensory deficit. Deep tendon reflexes were symmetric and active without pathology responses. Gait: The stance is more steady. IMPRESSION: 1. Acute onset of slurred speech, confusion and weakness of the lower extremities, etiology uncertain, however, side effects of pills or narcotics may have contributed to the current symptoms. 2. History of lower back pain with normal lumbosacral spine CT scan. RECOMMENDATIONS: 1. Avoid excessive use of narcotics. 2. Follow up with Dr. Amaya after 2 weeks of discharge for further evaluation for his lower back pain on an outpatient basis. M Aman AMAYA MD DR: KONRAD/gary JOB#: [id number] / [id number]
[2020-04-18] MEDS ORDERED: AMLO10TA8 PO (13:54)
[2020-04-18] MEDS ORDERED: ASPI-630 PO (13:54)
--- NOTE | 2020-04-18 14:25 | NUR ---
NSG NOTE; DISCHARGE VERBAL AND WRITTEN DISCHARGE INSTRUCTIONS GIVEN TO PT WITH VERBAL UNDERSTANDING WRITTEN RX GIVEN TO PT DISCHARGED TO HOME AT 1422 VIA AMB ACCOMP BY SON WHO PICKED HIM UP
--- NOTE | 2020-04-18 15:07 | DS ---
DATE OF DISCHARGE: HOSPITAL COURSE: The patient is a 54-year-old -[place] male patient who was admitted yesterday with altered mental status, slurring of speech, confusion, weakness in his lower extremity. He was extremely lethargic yesterday and it was very difficult to get information from him. His sister said he might have taken Percocet and was given also Haldol in the Emergency Room as apparently was combative there. He was extensively investigated and all his lab work and the imaging studies showed no evidence of any high-grade large vessel stenosis, any proximal branch vessel occlusion, aneurysm or vascular malformation. When I saw him this morning, he was definitely more awake, alert, sitting in the chair. PHYSICAL EXAMINATION: GENERAL: When I examined him, he looked well and was clearly in no apparent respiratory distress. No pallor, jaundice, cyanosis or thyromegaly. No jugular venous distention. No lower limb edema. VITAL SIGNS: His heart rate was 73, blood pressure 156/92, temperature was 99.2, respiratory rate 20 and oxygen saturation was 98% on room air. HEAD, EYES, EARS, NOSE AND THROAT: Normocephalic, atraumatic. NECK: Supple. HEART: Showed normal first and second heart sounds. No gallop, rub or murmur. CHEST: Clear to auscultation. No crepitation or rhonchi. ABDOMEN: Distended, soft, nontender. No guarding or rigidity. No organomegaly. All hernial orifices intact. Bowel sounds normal. NEUROLOGIC: He is definitely awake, alert, responding appropriately. All his cranial nerves are intact. EXTREMITIES: He moves extremities without difficulty, ambulates without assistance or assistive devices. LABORATORY DATA: His lab work showed serum sodium 141, potassium 4.1, chloride 106, bicarbonate 27, anion gap of 8, BUN 8, creatinine 0.8, estimated GFR was 121 mL per minute. His glucose 132, calcium was 9.1. His white cell count was 7500, hemoglobin 14.6, hematocrit 42, MCV 100, and platelet count 207,000. His toxic screen was negative. Urinalysis was essentially unremarkable. His CT scan of the lumbar spine was unremarkable and showed vertebral body heights and alignment are all maintained. Fracture through the lumbar spine is not identified. No significant spondylitic changes in the lumbar spine. Visualized soft tissues are unremarkable. DISCHARGE MEDICATIONS: He was discharged home on amlodipine 10 mg once a day and a baby aspirin. DISCHARGE INSTRUCTIONS: He was advised to follow with ____ and was to follow with Dr. Scherer. He was advised to quit smoking and drinking alcohol. FINAL DISCHARGE DIAGNOSES: Altered mental status with confusion, slurred speech and weakness of the right lower extremity that has resolved, hypertension, alcoholism and nicotine dependence and marijuana use disorder. MARLENE STEIN MD DR: JANIS/gary JOB#: [id number] / [id number]
== END 2020-04-18 14:25 | disposition home or self-care (01) ==
LOC: ER 10:54 → 1 SOUTH 14:30 → MERGE 14:30 → INTOOBSV 14:30
PROVIDERS: ADMIT Internal Medicine; ATTEND Internal Medicine
DX: R47.81 Slurred speech (principal); R41.0 Disorientation, unspecified; I10 Essential (primary) hypertension; E78.5 Hyperlipidemia, unspecified; M62.81 Muscle weakness (generalized); R27.0 Ataxia, unspecified; R47.1 Dysarthria and anarthria; G89.29 Other chronic pain; M54.5 Low back pain; M51.36 Other intervertebral disc degeneration, lumbar region; F17.200 Nicotine dependence, unspecified, uncomplicated; F10.20 Alcohol dependence, uncomplicated; F12.90 Cannabis use, unspecified, uncomplicated; Z98.890 Other specified postprocedural states; Z86.73 Personal history of transient ischemic attack (TIA), and cerebral infarction without residual deficits
CPT/HCPCS: 36415; 70450; 70496; 70498; 71045; 72131; 80048; 80053; 80061; 80307; 81001; 82947; 84484; 85025; 86592; 92610; 93005; 96361; 96374; 97166; 97530; 99285; G0378; G0480; J1630; J7042; Q9967; G0379

== ENCOUNTER → 2020-05-10 | Outpatient (CLI) | payer BC ==
[2020-04-18 12:00] VITALS: BP 156/92
[~2020-05-10] MED LIST: AMLO10TA8 PO; ASPI-630 PO
--- NOTE | 2020-05-10 16:36 | RAD ---
2 view study of the right hip Clinical indications: Right hip pain. FINDINGS: No acute fracture or dislocation or lytic process is seen. Mild spurring of the right femoral head is seen without significant joint space narrowing. No erosive arthropathy is evident. IMPRESSION: Mild degenerative spurring of the right femoral head. Electronically signed by: Gilson Ledezma MD (05/10/2020 4:33 PM) [id number]
--- NOTE | 2020-05-10 16:37 | RAD ---
Three-view right knee study Clinical indications: Right knee pain. FINDINGS: No acute fracture or dislocation or lytic process is seen. Mild degenerative spurring of the medial tibiofemoral joint compartment is seen without significant joint space narrowing. No significant right knee joint effusion is seen radiographically. IMPRESSION: No acute fracture. 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 Electronically signed by: Gilson Ledezma MD (05/10/2020 4:34 PM) [id number]
== END | disposition home or self-care (01) ==
LOC: DXRAD 12:46
PROVIDERS: ATTEND Psychiatry & Neurology Neurology
DX: M16.11 Unilateral primary osteoarthritis, right hip (principal); M17.11 Unilateral primary osteoarthritis, right knee
CPT/HCPCS: 73502; 73562